=== PATIENT | female | born 2000 | race Caucasian/White ===

== ENCOUNTER 2022-08-07 10:19 | Emergency (ER) | payer OTHER, SELFPAY ==
[2022-08-07 10:22] VITALS: BP 127/68; PULSE 68; RESP 16; TEMP 36.4; O2SAT 97; BMI 23.9
--- NOTE | 2022-08-07 11:24 | ED_ITS ---
HPI - General Adult General Date Seen: 08/07/22 Chief complaint: Unspecified Complaint, Adult Stated complaint: Cyst R armpit Time Seen by Provider: 08/07/22 10:20 Source: patient Mode of arrival: ambulatory Limitations: no limitations History of Present Illness HPI narrative: Patient is a 21-year-old female from [facility], presents here with the swelling on her right armpit, she has had recurrent swelling bilaterally, with her last swelling in her left armpit, which was excised, 1 month ago while she was in [place]. She still has sutures in there is asking to have these removed also. She tells me she has not been squeezing it, but it totally looks like on her examination she is giving some lateral pressure along this area. She has had been able to squeeze nothing, she does not have any draining sinuses, she was on antibiotics in the past, is currently on Bactrim. No history of fevers chills or sweats, no history of any weight loss, she is otherwise healthy, local person going to [place]. Related Data Home Medications Medication Instructions Recorded Confirmed cetirizine 10 mg tablet 10 mg PO DAILY 08/07/22 08/07/22 sulfamethoxazole 800 1 tab PO BID 08/07/22 08/07/22 mg-trimethoprim 160 mg tablet Previous Rx's Medication Instructions Recorded doxycycline monohydrate 100 mg 100 mg PO BID #30 caps 08/07/22 capsule Allergies Allergy/AdvReac Type Severity Reaction Status Date / Time No Known Drug Allergies Allergy Verified 08/07/22 10:27 Review of Systems Status of ROS: Reports: 6 or more systems reviewed and unremarkable except as noted in History and below [facility] Social History Smoking Status: Never smoker Do you use any of these nicotine containing products: None Second hand tobacco smoke exposure: No How often do you have a drink containing alcohol: never How often do you have six or more drinks on one occasion: Never AUDIT-C Alcohol total score: 0 Non-prescribed substance use: denies use service: No Exam Narrative: Exam Narrative: On examination with nurse Francis present to right axilla shows a swelling of redness, with some lateral pressure, the area of swelling is approximately 1 x 3 cm, goes to be intradermal. No other associated swelling is noted, on her left axilla, 2 sutures are notable. I was able with the ultrasound showed that there was no evidence of any fluid, or any drainable tissue, there is a well circumcised area that is non ballotable, which could be a lymph no but also could be a cystic formation approximately 1 cm below the skin level, round in nature, with no cobblestoning. Atraumatically was able to remove 2 small sutures from her left axilla. Const: Vital Signs, click to edit/add: Vital Signs - 24 hr 08/07/22 10:22 Temperature 97.5 F L Pulse Rate [Pulse Oximeter] 68 Respiratory Rate 16 Blood Pressure [Ri ght Upper Arm] 127/68 Pulse Oximetry 97 Oxygen Delivery Me thod Room Air Documenting provider has reviewed patient's vital signs: yes Course Vital Signs Vital signs: Initial Vital Signs Temperature 97.5 F L 08/07/22 10:22 Temperature Source Temporal Artery Scan 08/07/22 10:22 Pulse Rate 68 08/07/22 10:22 Respiratory Rate 16 08/07/22 10:22 Blood Pressure 127/68 08/07/22 10:22 Blood Pressure Mean 87 08/07/22 10:22 Blood Pressure Position Supine 08/07/22 10:22 Pulse Oximetry 97 08/07/22 10:22 Oxygen Delivery Method Room Air 08/07/22 10:22 Vital Signs Temperature 97.5 F L 08/07/22 10:22 Pulse Rate 68 08/07/22 10:22 Respiratory Rate 16 08/07/22 10:22 Blood Pressure 127/68 08/07/22 10:22 Pulse Oximetry 97 08/07/22 10:22 Oxygen Delivery Method Room Air 08/07/22 10:22 Temperature 97.5 F L 08/07/22 10:22 Pulse Rate 68 08/07/22 10:22 Respiratory Rate 16 08/07/22 10:22 Blood Pressure 127/68 08/07/22 10:22 Pulse Oximetry 97 08/07/22 10:22 Oxygen Delivery Method Room Air 08/07/22 10:22 Medical Decision Making MDM Narrative Medical decision making narrative: I discussed with her that we try not to drain these is they can get a fistula tract, we will put her on some doxycycline, for 10 days and she will likely need to be on this long-term I will have her stop the sulfa at this point, my only inclination was that she grew MRSA and that is the reason they put her on that, but she tells me that is not the reason. I warned her about exposure to the sun, associated with the doxycycline, and I will have her follow up with surgery also. Discharge Plan Discharge Clinical Impression: Axillary hidradenitis suppurativa, Encounter for removal of sutures Patient Disposition: Home, Self-Care Condition: Stable Instructions: Hidradenitis Suppurativa (ED) Additional Instructions: Home, rest, use of doxycycline, stop using sulfa, recommend follow-up with surgery, for recheck, no evidence of anything drainable, ibuprofen 600 mg p.o. t.i.d.. Would recommend trying to avoid the sun as much as possible while on the antibiotic Follow-up with Dr. Lucero sandersr within the next couple weeks, and you probably will need to be on low-dose doxycycline, for the next few months. Activity Level: No Restrictions Prescriptions: New doxycycline monohydrate 100 mg capsule 100 mg PO BID Qty: 30 0RF No Action cetirizine 10 mg tablet 10 mg PO DAILY sulfamethoxazole-trimethoprim 800-160 mg tablet 1 tab PO BID Follow Up/Referrals: Missy Oates MD [Staff Physician] - Betina Bentley MD [Primary Care Provider] - Stand Alone Forms: [employer] Info Instructions
== END 2022-08-07 11:40 | disposition home or self-care (01) ==
PROVIDERS: Emergency Provider Family Medicine; PCP Family Medicine
DX: L73.2 Hidradenitis suppurativa (principal); Z48.02 Encounter for removal of sutures
CPT/HCPCS: 99283